=== PATIENT | female | born 1950 | race Caucasian/White ===

== ENCOUNTER 2024-07-12 08:53 | Inpatient (IN) ==
[2024-07-12] MEDS: fentaNYL 100 MCG/2 ML VIAL IV ONE (10:43)
[2024-07-12] MEDS: 0.9 % SODIUM CHLORIDE 1,000 ML IV ONE (10:43)
[2024-07-12 11:33] LABS: POC Calcium, Ionized 1.16 (1.16-1.32); POC Creatinine 1.8 (0.6-1.2); POC Potassium 5.6 (3.3-5.1)
[2024-07-12] MEDS: DOXYCYCLINE HYCLATE 100 MG TABLET.ORL PO ONE (11:46)
[2024-07-12] MEDS: cefTRIAXone 2 GM in DEXTROSE 5% IN WATER 50 ML IV ONE (11:46)
[2024-07-12 12:02] LABS: Basophils # (Auto) 0.01 K/mcL (0.00-0.30); Basophils % (Auto) 0.1 % (0.0-2.0); Eosinophils # (Auto) 0.09 K/mcL (0.00-0.70); Hematocrit 41.5 % (34.1-44.9); Hemoglobin 14.1 g/dL (11.2-15.7); Lymphocytes # (Auto) 1.45 K/mcL (1.50-4.80); Lymphocytes % (Auto) 16.1 % (15.5-49.0); Mean Cell Volume 87.9 fL (80.0-100.0); Mean Platelet Volume 9.2 fL (8.8-12.5); Monocytes # (Auto) 0.91 K/mcL (0.10-0.90); Monocytes % (Auto) 10.1 % (1.0-12.0); Neutrophils % (Auto) 70.9 % (38.0-78.0); Platelet Count 280 K/mcL (140-440); RBC 4.72 M/mcL (3.59-5.38); Red Cell Distribution Width 15.4 % (11.5-14.5)
[2024-07-12 12:39] LABS: Blood Urea Nitrogen 51 mg/dL (8-23); Calcium 9.6 mg/dL (8.6-10.4); Carbon Dioxide 18 mmol/L (22-30); Chloride 91 mmol/L (96-108); Glomerular Filtration Rate 31; Glucose 117 mg/dL (70-105); Potassium 5.6 mmol/L (3.3-5.1); Sodium 121 mmol/L (133-145)
[2024-07-12 14:50] LABS: Band Neutrophils % 4 % (0-10); Lymphocytes % 14 % (15-49); Metamyelocytes % 1 %; Monocytes % (Manual) 9 % (1-12); Myelocytes % 1 %; Platelet Estimate NORMAL (Normal); RBC Morphology NORMAL (Normal); Segmented Neutrophils % 71 % (38-78)
[2024-07-12] MEDS ORDERED: MAGNESIUM SULFATE 2 GM/50 ML BAG IV PRN (15:50)
[2024-07-12] MEDS ORDERED: SENNOSIDES 1 TABLET PO PRN (15:50)
[2024-07-12] MEDS ORDERED: HYDROcodone/APAP 5/325MG TABLET PO PRN (15:50)
[2024-07-12] MEDS ORDERED: POTASSIUM CHLORIDE 20 MEQ TABLET PO PRN ×2 (15:50)
[2024-07-12] MEDS ORDERED: METOCLOPRAMIDE 10 MG/2 ML VIAL IV PRN (15:50)
[2024-07-12] MEDS ORDERED: IPRATROPIUM/ALBUTEROL 3 ML AMPUL.NEB NEB PRN (15:50)
[2024-07-12] MEDS ORDERED: morphine 4 MG/ML VIAL IV PRN (15:50)
[2024-07-12] MEDS ORDERED: POTASSIUM CHLORIDE 40 MEQ in DEXTROSE 5% IN WATER 500 ML IV PRN (15:50)
[2024-07-12] MEDS ORDERED: POLYETHYLENE GLYCOL 3350 17 GM PACKET PO PRN (15:50)
[2024-07-12] MEDS: 0.9 % SODIUM CHLORIDE 10 ML SYRINGE IV SCH (16:08)
[2024-07-12] MEDS: 0.9 % SODIUM CHLORIDE 1,000 ML IV SCH (16:11)
[2024-07-12] MEDS ORDERED: ASPIRIN CAFFEINE PO PRN (16:19)
[2024-07-12] MEDS ORDERED: [UNRECOGNIZED DRUG - OTHER] PO PRN (16:19)
[2024-07-12 16:43] LABS: Sodium 122 mmol/L (133-145)
[2024-07-12] MEDS: SODIUM CHLORIDE 1 GM TABLET PO SCH (17:33)
[2024-07-12 19:44] LABS: Sodium, Urine Random < 20 mmol/L
[2024-07-12 19:51] LABS: Osmolality,Urine 497 mOSM/kg (80-1000)
[2024-07-12] MEDS: METOPROLOL TARTRATE 50 MG TABLET PO SCH (20:25)
[2024-07-12] MEDS: DOCUSATE SODIUM 100 MG CAPSULE PO SCH (20:26)
[2024-07-12] MEDS: ONDANSETRON 4 MG/2 ML VIAL IV PRN (20:30)
[2024-07-12] MEDS: METHOCARBAMOL 500 MG TABLET PO PRN (22:57)
[2024-07-12] MEDS: CLOBETASOL PROP OINT 0.05% TUBE 15GM TOPICAL SCH (23:17)
[2024-07-13 06:51] LABS: Basophils # (Auto) 0.01 K/mcL (0.00-0.30); Basophils % (Auto) 0.2 % (0.0-2.0); Eosinophils # (Auto) 0.23 K/mcL (0.00-0.70); Eosinophils % (Auto) 4.2 % (0.0-7.0); Hematocrit 35.8 % (34.1-44.9); Hemoglobin 11.8 g/dL (11.2-15.7); Lymphocytes # (Auto) 1.47 K/mcL (1.50-4.80); Lymphocytes % (Auto) 26.9 % (15.5-49.0); Mean Cell Volume 89.3 fL (80.0-100.0); Monocytes # (Auto) 0.68 K/mcL (0.10-0.90); Monocytes % (Auto) 12.4 % (1.0-12.0); Neutrophils % (Auto) 53.7 % (38.0-78.0); Platelet Count 226 K/mcL (140-440); RBC 4.01 M/mcL (3.59-5.38); Red Cell Distribution Width 15.3 % (11.5-14.5); WBC 5.5 K/mcL (4.5-11.0)
[2024-07-13 07:18] LABS: ALT/SGPT 13 U/L (<40); AST/SGOT 17 U/L (<32); Albumin 2.7 gm/dL (3.2-5.2); Albumin/Globulin Ratio 0.9 (1.0-2.3); Alkaline Phosphatase 70 U/L (39-117); Bilirubin,Direct < 0.2 mg/dL (0-0.3); Bilirubin,Total 0.3 mg/dL (0.1-1.0); Blood Urea Nitrogen 40 mg/dL (8-23); Calcium 8.2 mg/dL (8.6-10.4); Carbon Dioxide 19 mmol/L (22-30); Chloride 96 mmol/L (96-108); Globulin 2.9 gm/dL (2.2-3.7); Glomerular Filtration Rate 40; Glucose 85 mg/dL (70-105); Lactate Dehydrogenase 179 U/L (135-225); Phosphorous 2.7 mg/dL (2.5-4.5); Potassium 4.7 mmol/L (3.3-5.1); Sodium 125 mmol/L (133-145); Triglycerides 87 mg/dL (<150); Uric Acid 7.9 mg/dL (2.5-8.0)
[2024-07-13] MEDS: DULoxetine 30 MG CAPSULE PO SCH (09:01)
[2024-07-13] MEDS: FUROSEMIDE 20 MG TABLET PO SCH (09:07)
[2024-07-13] MEDS: ENOXAPARIN 40 MG/0.4 ML SYRINGE SQ SCH (09:08)
[2024-07-13] MEDS: SODIUM BICARBONATE 650 MG TABLET PO SCH (09:08)
[2024-07-13] MEDS: ACETAMINOPHEN 325 MG TABLET PO PRN (12:26)
[2024-07-14] MEDS: traMADol 50 MG TABLET PO PRN (06:09)
[2024-07-14 07:25] LABS: Basophils # (Auto) 0 K/mcL (0.00-0.30); Basophils % (Auto) 0 % (0.0-2.0); Eosinophils # (Auto) 0.25 K/mcL (0.00-0.70); Eosinophils % (Auto) 5.2 % (0.0-7.0); Hematocrit 40.2 % (34.1-44.9); Hemoglobin 12.5 g/dL (11.2-15.7); Lymphocytes # (Auto) 1.65 K/mcL (1.50-4.80); Lymphocytes % (Auto) 34.2 % (15.5-49.0); Mean Cell Volume 95.5 fL (80.0-100.0); Mean Corpuscular HGB Conc 31.1 g/dL (31.0-36.0); Mean Platelet Volume 8.7 fL (8.8-12.5); Monocytes # (Auto) 0.56 K/mcL (0.10-0.90); Monocytes % (Auto) 11.6 % (1.0-12.0); Neutrophils % (Auto) 46.3 % (38.0-78.0); Platelet Count 231 K/mcL (140-440); RBC 4.21 M/mcL (3.59-5.38); Red Cell Distribution Width 15.6 % (11.5-14.5); WBC 4.8 K/mcL (4.5-11.0)
[2024-07-14 07:50] LABS: ALT/SGPT 14 U/L (<40); AST/SGOT 18 U/L (<32); Albumin 2.8 gm/dL (3.2-5.2); Albumin/Globulin Ratio 0.9 (1.0-2.3); Alkaline Phosphatase 70 U/L (39-117); Bilirubin,Total 0.3 mg/dL (0.1-1.0); Blood Urea Nitrogen 30 mg/dL (8-23); Calcium 8.6 mg/dL (8.6-10.4); Carbon Dioxide 20 mmol/L (22-30); Chloride 96 mmol/L (96-108); Glomerular Filtration Rate 45; Glucose 73 mg/dL (70-105); Potassium 4.4 mmol/L (3.3-5.1); Sodium 127 mmol/L (133-145)
[2024-07-14] MEDS: TRIAMCINOLONE CREAM 0.1% 15G 1 DOSE TUBE TOPICAL SCH (08:21)
[2024-07-14 21:19] VITALS: O2SAT 100
[2024-07-15] MEDS: 0.9 % SODIUM CHLORIDE 1,000 ML IV ONE (06:21)
[2024-07-15 09:32] LABS: Basophils # (Auto) 0.01 K/mcL (0.00-0.30); Basophils % (Auto) 0.2 % (0.0-2.0); Eosinophils # (Auto) 0.21 K/mcL (0.00-0.70); Eosinophils % (Auto) 3.4 % (0.0-7.0); Hematocrit 48.9 % (34.1-44.9); Hemoglobin 14.4 g/dL (11.2-15.7); Lymphocytes # (Auto) 2.09 K/mcL (1.50-4.80); Lymphocytes % (Auto) 34.1 % (15.5-49.0); Mean Cell Volume 100.6 fL (80.0-100.0); Mean Corpuscular HGB Conc 29.4 g/dL (31.0-36.0); Mean Platelet Volume 8.4 fL (8.8-12.5); Monocytes # (Auto) 0.57 K/mcL (0.10-0.90); Monocytes % (Auto) 9.3 % (1.0-12.0); Neutrophils % (Auto) 49.7 % (38.0-78.0); Platelet Count 223 K/mcL (140-440); RBC 4.86 M/mcL (3.59-5.38); Red Cell Distribution Width 15.7 % (11.5-14.5); WBC 6.1 K/mcL (4.5-11.0)
[2024-07-15 09:46] LABS: ALT/SGPT 14 U/L (<40); AST/SGOT 17 U/L (<32); Albumin 2.7 gm/dL (3.2-5.2); Albumin/Globulin Ratio 0.7 (1.0-2.3); Alkaline Phosphatase 78 U/L (39-117); Bilirubin,Total 0.5 mg/dL (0.1-1.0); Blood Urea Nitrogen 24 mg/dL (8-23); Calcium 8.9 mg/dL (8.6-10.4); Carbon Dioxide 15 mmol/L (22-30); Chloride 100 mmol/L (96-108); Globulin 3.9 gm/dL (2.2-3.7); Glomerular Filtration Rate 56; Glucose 80 mg/dL (70-105); Potassium 4.3 mmol/L (3.3-5.1); Sodium 127 mmol/L (133-145)
[2024-07-15 11:43] VITALS: TEMP 97.6
== END 2024-07-15 15:10 | DRG 641 ==
LOC: ED 08:53 → ICU 15:30 → MEDSUR 07-13 17:34
PROVIDERS: ADMIT Internal Medicine; ATTEND Internal Medicine